=== PATIENT | female | born 1950 | race Caucasian/White ===

== ENCOUNTER 2017-04-03 08:07 | Emergency (ER) | payer OTHER ==
[2017-04-03 08:19] VITALS: BP 148/63; PULSE 61; TEMP 97.9; BMI 28.0
--- NOTE | 2017-04-03 09:00 | PDOC ---
History of Present Illness - General Chief Complaint: Eye Problem Stated Complaint: EYES PAIN Time Seen by Provider: 04/03/17 08:29 History Source: Patient Exam Limitations: No Limitations - History of Present Illness Initial Comments: 04/03/17 08:55 66-year-old female presents to the ED with chemical exposure to the eyes. Patient states was using Tilex when it sprayed into her eyes. Patient states immediately cleansed with water and came down to the emergency room. 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 Patient was not wearing any protective eyewear. Patient denies any visual changes presently. Timing/Duration: 1 hour Severity: mild Associated Symptoms: reports: denies symptoms Past History - Past Medical History Allergies/Adverse Reactions: Allergies Allergy/AdvReac Type Severity Reaction Status Date / Time No Known Allergies Allergy Verified 04/03/17 08:14 Hypercholesterolemia: Yes - Psycho/Social/Smoking Cessation Hx Anxiety: No Suicidal Ideation: No Smoking History: Never smoked Have you smoked in the past 12 months: No Information on smoking cessation initiated: No Hx Alcohol Use: No Drug/Substance Use Hx: No Substance Use Type: None Patient Lives Alone: No Lives with/in: spouse/SO Review of Systems - Review of Systems Able to Perform ROS?: Yes HEENTM: Yes: Eye Pain. No: Blurred Vision, Tearing Integumentary: No: Symptoms Reported Neurological: No: Headache *Physical Exam - Vital Signs Last Vital Signs Temp Pulse Resp BP Pulse Ox 97.9 F 61 18 148/63 100 04/03/17 08:15 04/03/17 08:15 04/03/17 08:15 04/03/17 08:15 04/03/17 08:15 - Physical Exam General Appearance: Yes: Nourished, Appropriately Dressed. No: Apparent Distress HEENT: positive: EOMI, GET, Other (Using fluorescing staining and tetracaine drops. Patient was assessed for a chemical burn/abrasion. No acute findings noted. ) Integumentary: positive: Normal Color, Warm, Moist Neurologic: positive: Motor Strength 5/5 ( ambulatory) Medical Decision Making - Medical Decision Making 04/03/17 08:57 Patient here for exposure to the eyes with Tilex. Patient states cleansed with copious amount of tap water from the eye station. Patient works here in housekeeping. Patient on exam had no acute findings. Patient be discharged home with saline drops and recommended to use a cold compress such as a cold/ cool towel to alleviate symptoms and inflammation. *DC/Admit/Observation/Transfer Diagnosis at time of Disposition: Chemical exposure of eye - Discharge Dispostion Disposition: HOME Condition at time of disposition: Good - Referrals Referrals: Geronimo Mojica MD [Primary Care Provider] - - Patient Instructions Printed Discharge Instructions: How to Use Eyedrops, DI for Eye Pain Additional Instructions: At this point I recommend using saline drops to alleviate your irritation and allow irrigation. I also recommend using a cool/cold towel to the eyes as much as you can tolerate for the next 3 days to alleviate inflammation and irritation. - Post Discharge Activity Work/School Note: Back to Work
== END 2017-04-03 09:15 | disposition home or self-care (01) ==
LOC: JERFT 08:07
DX: Z77.098 Contact with and (suspected) exposure to other hazardous, chiefly nonmedicinal, chemicals (principal); X58.XXXA Exposure to other specified factors, initial encounter; Y93.E9 Activity, other interior property and clothing maintenance; Y92.238 Other place in hospital as the place of occurrence of the external cause; Y99.0 Civilian activity done for income or pay
CPT/HCPCS: 99281-25

== ENCOUNTER 2018-03-12 10:01 | Emergency (ER) | payer OTHER ==
[2018-03-12 10:19] VITALS: BP 150/71; PULSE 60; TEMP 97.8; BMI 28.9
[2018-03-12] MEDS ORDERED: IBUPROFEN 600 MG TABLET (FP) PO ONE ×2 (10:39→10:49)
--- NOTE | 2018-03-12 10:46 | PDOC ---
History of Present Illness - General Chief Complaint: Injury Stated Complaint: FALL/ LT ARM PAIN (EMPLOYEE) Time Seen by Provider: 03/12/18 10:36 Exam Limitations: No Limitations - History of Present Illness Initial Comments: 03/12/18 10:39 slip and fall at work injured left shoulder and wrist fell to floor. no head injury no dizzyness. history of HTN, high cholesterol. Past History - Past Medical History Allergies/Adverse Reactions: Allergies Allergy/AdvReac Type Severity Reaction Status Date / Time No Known Allergies Allergy Verified 03/12/18 10:15 Home Medications: Ambulatory Orders Metoprolol Succinate 50 mg PO DAILY 03/12/18 Simvastatin 40 mg PO DAILY 03/12/18 COPD: No Hypercholesterolemia: Yes - Suicide/Smoking/Psychosocial Hx Smoking History: Never smoked Have you smoked in the past 12 months: No Hx Alcohol Use: No Drug/Substance Use Hx: No Substance Use Type: None Review of Systems - Review of Systems Able to Perform ROS?: Yes Is the patient limited Marshallese proficient: No Constitutional: No: Symptoms Reported HEENTM: No: Symptoms Reported Respiratory: No: Symptoms reported Cardiac (ROS): No: Symptoms Reported ABD/GI: No: Symptoms Reported *Physical Exam - Vital Signs Last Vital Signs Temp Pulse Resp BP Pulse Ox 97.8 F 60 19 150/71 98 03/12/18 10:15 03/12/18 10:15 03/12/18 10:15 03/12/18 10:15 03/12/18 10:15 - Physical Exam General Appearance: Yes: Nourished, Appropriately Dressed HEENT: positive: EOMI, GET Neck: positive: Supple. negative: Tender Respiratory/Chest: positive: Lungs Clear, Normal Breath Sounds Cardiovascular: positive: Regular Rhythm, Regular Rate Gastrointestinal/Abdominal: positive: Normal Bowel Sounds, Soft Musculoskeletal: positive: Normal Inspection Extremity: positive: Normal Capillary Refill, Normal Inspection, Normal Range of Motion, Tender (left humeral head ttp, left wrist distal radius ttp no deformity) Integumentary: positive: Normal Color, Dry, Warm Neurologic: positive: Fully Oriented, Alert, Normal Mood/Affect, Normal Response , Motor Strength 5/5 Medical Decision Making - Medical Decision Making 03/12/18 10:49 cc: slip and fall no loc no head injury will get xrays r/o fractures pt stable no distress. 03/12/18 11:16 *DC/Admit/Observation/Transfer Diagnosis at time of Disposition: Contusion Qualifiers: Encounter type: initial encounter Contusion area: shoulder Laterality: left Qualified Code(s): S40.012A - Contusion of left shoulder, initial encounter - Discharge Dispostion Disposition: HOME Condition at time of disposition: Good - Referrals Referrals: Geronimo Mojica MD [Primary Care Provider] - - Patient Instructions Additional Instructions: apply ice every 2hrs for 15 minutes as needed for 2 days take motrin 600mg every 8hrs for pain as needed follow with your doctor for follow up next week if symptoms continue or worsen - Post Discharge Activity
== END 2018-03-12 12:07 | disposition home or self-care (01) ==
LOC: JERFT 10:01
DX: S40.012A Contusion of left shoulder, initial encounter (principal); W01.0XXA Fall on same level from slipping, tripping and stumbling without subsequent striking against object, initial encounter; Y93.89 Activity, other specified; Y92.238 Other place in hospital as the place of occurrence of the external cause; Y99.0 Civilian activity done for income or pay; I10 Essential (primary) hypertension; E78.00 Pure hypercholesterolemia, unspecified
CPT/HCPCS: 73030-TC-LT-FY; 73110-TC-LR-FY; 73130-TC-LR-FY; 99281-25

== ENCOUNTER 2019-03-02 12:02 | Emergency (ER) | payer OTHER | END 2019-03-02 12:30 | disposition home or self-care (01) | LOC: JERFT 12:02 ==

== ENCOUNTER 2020-09-05 15:45 | Emergency (ER) | payer OTHER ==
[2020-09-05 15:51] VITALS: PULSE 77; BMI 28.3
[2020-09-05] MEDS ORDERED: DIPHTH,PERTUSS(ACELL),TET 0.5 ML DISP.SYRIN IM ONE ×2 (15:54→17:51)
[2020-09-05] MEDS ORDERED: ACETAMINOPHEN 325 MG TABLET (FP) PO ONE (15:54)
[2020-09-05] MEDS ORDERED: ACETAMINOPHEN 325 MG TABLET (FP) ONE (17:51)
[2020-09-05 18:23] VITALS: TEMP 97.2
[2020-09-13 07:09] VITALS: BP 148/79
== END 2020-09-05 18:23 | disposition home or self-care (01) ==
LOC: JER 15:45
PROC: 3E0234Z Introduction of Serum, Toxoid and Vaccine into Muscle, Percutaneous Approach (ICD-10-PCS; principal; 2020-09-05)
DX: S09.90XA Unspecified injury of head, initial encounter (principal); W19.XXXA Unspecified fall, initial encounter
CPT/HCPCS: 70450-TC; 71046-TC-FY; 72125-TC; 73030-TC-LT-FY; 73130-TC-LT-FY; 73523-TC-FY; 73552-TC-LT-FY; 90715; 99285-25